=== PATIENT | male | born 1950 | race African-American/Black ===

== ENCOUNTER 2017-12-10 16:36 | Emergency (ER) | payer MEDICAID ==
[~2017-12-10] VITALS: Ht 180.3 cm; Wt 82.0 kg
[2017-12-10] MEDS ORDERED: LIDOCAINE HCL 1% 20ML VIAL (Pyxis) INJ MC ONE (17:30)
[2017-12-10] MEDS ORDERED: TETANUS, DIPHTHERIA, PERTUSSIS VAC/PF 0.5ML (>7YR OLD) IM ONE (17:30)
[2017-12-10] MEDS ORDERED: BACITRACIN ZINC OINT UDPKT TOP ONE (17:30)
[2017-12-10] MEDS ORDERED: ACETAMINOPHEN 325MG TABLET PO ONE (19:45)
[2017-12-11 00:17] VITALS: BP 144/89
== END 2017-12-11 00:21 | disposition home or self-care (01) ==
LOC: ER 16:38
DX: S01.81XA Laceration without foreign body of other part of head, initial encounter (principal); I10 Essential (primary) hypertension; M25.512 Pain in left shoulder; M25.552 Pain in left hip; Z86.73 Personal history of transient ischemic attack (TIA), and cerebral infarction without residual deficits; V03.99XA Pedestrian with other conveyance injured in collision with car, pick-up truck or van, unspecified whether traffic or nontraffic accident, initial encounter; Y93.89 Activity, other specified; Y92.89 Other specified places as the place of occurrence of the external cause; Y99.8 Other external cause status
CPT/HCPCS: 12013; 70450; 73030; 73070; 73502; 90471; 90715; 99284; J3490; X7700; Z7610

== ENCOUNTER 2017-12-14 12:26 | Emergency (ER) | payer MEDICAID ==
[~2017-12-14] VITALS: Ht 180.3 cm; Wt 82.0 kg
[2017-12-14 13:34] VITALS: BP 149/99
== END 2017-12-14 13:37 | disposition home or self-care (01) ==
LOC: ER 13:03
DX: Z48.00 Encounter for change or removal of nonsurgical wound dressing (principal); I10 Essential (primary) hypertension; Z86.73 Personal history of transient ischemic attack (TIA), and cerebral infarction without residual deficits
CPT/HCPCS: 99281

== ENCOUNTER 2017-12-20 13:38 | Emergency (ER) | payer MEDICAID ==
[~2017-12-20] VITALS: Ht 167.6 cm; Wt 66.0 kg
[2017-12-20 14:00] VITALS: BP 149/96
== END 2017-12-20 23:23 | disposition left against medical advice (07) ==
LOC: ER 15:11
DX: Z48.02 Encounter for removal of sutures (principal); Z53.21 Procedure and treatment not carried out due to patient leaving prior to being seen by health care provider